=== PATIENT | male | born 1965 ===

== ENCOUNTER 2017-10-03 08:06 | Emergency (ER) | payer MEDICARE, OTHER ==
[2017-10-03 08:34] VITALS: TEMP 97.6; O2SAT 98; BMI 25.7
--- NOTE | 2017-10-03 08:43 | ED PDOC ---
Arrival/HPI - General Historian: Patient - History of Present Illness Time/Duration: < week Symptom Onset: Gradual Symptom Course: Worsening <Hood Juarezferchojeanine - Last Filed: 10/03/17 13:02> - History of Present Illness Quality: Tightness, Stabbing, Burning Severity Level: 8, Severe Activities at Onset: Rest Context: Home <Ceferino Rose - Last Filed: 10/03/17 20:08> - General Chief Complaint: Abnormal Skin Integrity Time Seen by Provider: 10/03/17 10:00 - History of Present Illness Narrative History of Present Illness (Text): 10/03/17 08:36 52 yo M with PMH of cardiomyopathy, mitral valve prolapse, CAD s/p stent, carotid stenosis s/p stent, obstructive hydrocephalus 2/2 benign "brain tumor", HTN, DM, and GERD presents to ER complaining of pelvic skin abscess. Three days ago, patient had a "pimple" in his pelvic region, overlying the pubic bone, which he popped and cleaned. The following day, the "pimple" returned, and he again popped and cleaned it, expressed pus and blood. Over the past two days, he has had increasing pain and swelling, without drainage or bleeding. He denies any other ulceration, skin lesions, penile ulcers, urethral discharge, rash, recent illness, fever, chills, nausea, vomiting, diarrhea, constipation, abdominal pain, groin pain, leg pain, back pain, chest pain, shortness of breath , dysuria, hematuria. Patient is sexually active with his of many years, to whom he is faithful to and does not suspect infidelity. Patient is in [facility] from [place] for the of his [facility], and he plans on staying for several months. (Lonnie Juarez) Past Medical History - Provider Review Nursing Documentation Reviewed: Yes - Travel History Have you recently traveled outside [place] w/in the past 3 mons?: No - Infectious Disease Hx of Infectious Diseases: None - Tetanus Immunization Tetanus Immunization: >10 years Ago - Cardiac Hx Cardiac Disorders: Yes Hx Angina: Yes Hx Cardiac Arrhythmia: Yes Hx Mitral Valve Prolapse: Yes Other/Comment: 4 SC, cardiomyopathy - Pulmonary Hx Respiratory Disorders: Yes Hx Asthma: Yes - Neurological Hx Neurological Disorder: Yes Hx Seizures: Yes Other/Comment: Brain tumor - HEENT Hx HEENT Disorder: No - Renal Hx Renal Disorder: No - Endocrine/Metabolic Hx Endocrine Disorders: Yes Hx Diabetes Mellitus Type 2: Yes Other/Comment: BRAIN TUMOR (NON MALIGNANT) - Hematological/Oncological Hx Blood Disorders: No - Integumentary Hx Dermatological Disorder: No - Musculoskeletal/Rheumatological Hx Musculoskeletal Disorders: No Hx Falls: No - Gastrointestinal Hx Gastrointestinal Disorders: No - Genitourinary/Gynecological Hx Genitourinary Disorders: No - Psychiatric Hx Psychophysiologic Disorder: No Hx Substance Use: No - Surgical History Hx Appendectomy: Yes Hx Orthopedic Surgery: Yes (LEFT SHOULDER REPAIR) - Anesthesia Hx Anesthesia: No - Suicidal Assessment Feels Threatened In Home Enviroment: No <Lonnie Juarez - Last Filed: 10/03/17 13:02> - Provider Review Nursing Documentation Reviewed: Yes - Past History Past History: No Previous <Ceferino Rose - Last Filed: 10/03/17 20:08> - Patient History Narrative Patient History: cardiomyopathy, mitral valve prolapse, CAD s/p stent, carotid stenosis s/p stent , obstructive hydrocephalus 2/2 benign "brain tumor", HTN, DM, and GERD (Lonnie Juarez) Family/Social History - Physician Review Nursing Documentation Reviewed: Yes Family/Social History: Unknown Family HX Smoking Status: Former Smoker Hx Alcohol Use: No Hx Substance Use: No <Lonnie Juarez - Last Filed: 10/03/17 13:02> - Physician Review Nursing Documentation Reviewed: Yes Hx Substance Use Treatment: No <Ceferino Rose - Last Filed: 10/03/17 20:08> Allergies/Home Meds <Lonnie Juarez - Last Filed: 10/03/17 13:02> <Ceferino Rose - Last Filed: 10/03/17 20:08> Allergies/Adverse Reactions: Allergies alprazolam [From Xanax] Allergy (Verified 10/03/17 08:26) RASH amoxicillin Allergy (Verified 10/03/17 08:26) RASH aspirin Allergy (Verified 10/03/17 08:26) RASH propranolol [From Inderal LA] Allergy (Verified 10/03/17 08:26) RASH shellfish derived Allergy (Verified 10/03/17 08:26) RASH Home Medications: Home Meds Medication Instructions Recorded Confirmed Metoprolol Succinate [Toprol XL] 25 mg PO DAILY 01/21/15 10/03/17 Diclofenac Sodium [Voltaren] 75 mg PO DAILY 10/03/17 10/03/17 Lisinopril [Zestril] 2.5 mg PO DAILY 10/03/17 10/03/17 Omeprazole 40 mg PO DAILY 10/03/17 10/03/17 Review of Systems - Review of Systems Constitutional: Normal Eyes: Normal ENT: Normal Respiratory: Normal Cardiovascular: Normal Gastrointestinal: Normal Genitourinary Male: Normal Musculoskeletal: Normal Skin: Skin Lesions (pelvic, as in HPI) Neurological: Normal Endocrine: Normal Hemo/Lymphatic: Normal Psychiatric: Normal <Amine,Mukarram - Last Filed: 10/03/17 13:02> Physical Exam Vital Signs Reviewed: Yes Temperature: Afebrile Blood Pressure: Hypertensive Pulse: Regular Respiratory Rate: Normal Appearance: Positive for: Well-Appearing, Non-Toxic, Comfortable Pain Distress: None Mental Status: Positive for: Alert and Oriented X 3 - Systems Exam Head: Present: Atraumatic, Normocephalic Pupils: Present: PERRL Extroacular Muscles: Present: EOMI Conjunctiva: Present: Normal Mouth: Present: Moist Mucous Membranes Neck: Present: Normal Range of Motion Respiratory/Chest: Present: Clear to Auscultation, Good Air Exchange. No: Respiratory Distress, Accessory Muscle Use Cardiovascular: Present: Regular Rate and Rhythm, Normal S1, S2 Abdomen: Present: Normal Bowel Sounds. No: Tenderness, Distention, Peritoneal Signs Genitourinary Male: Present: Normal External Genitalia, Circumcised Penis, Lesions (5x6cm erythema with 4cm induration with 1cm dry eschar in midline, over pubis; tender; no fluctuance; can express scant pruluent/bloody drainage), Other (No inguinal lymphadenopathy). No: Penile Discharge, Testicle Tenderness , Penile Swelling, Masses, Testicle Swelling Upper Extremity: Present: Normal Inspection. No: Cyanosis, Edema Lower Extremity: Present: Normal Inspection. No: Edema, CALF TENDERNESS Neurological: Present: GCS=15, CN II-XII Intact, Speech Normal Skin: Present: Warm, Dry, Normal Color Lymphatic: No: Inguinal Adenopathy Psychiatric: Present: Alert, Oriented x 3, Normal Insight, Normal Concentration <Amine,Mukarram - Last Filed: 10/03/17 13:02> Vital Signs Temp Pulse Resp BP Pulse Ox 10/03/17 11:37 72 169/70 H 10/03/17 11:30 78 18 169/70 H 98 10/03/17 08:29 97.6 F 91 H 17 167/97 H 98 Medical Decision Making <Lonnie Juarez - Last Filed: 10/03/17 13:02> Re-evaluation Time: 12:00 Reassessment Condition: Improved - Lab Interpretations I have reviewed the lab results: Yes Interpretation: Abnormal lab values (elevated gluc) <Ceferino Rose - Last Filed: 10/03/17 20:08> ED Course and Treatment: 10/03/17 10:21 Impression Skin infection Differential diagnosis includes, but is not limited to Abscess, cellulitis Plan -- Labs -- IV clindamycin x1 -- Analgesia -- Tdap booster -- Wound culture -- Reassess and dispo Progress note 10/03/17 12:32 -- Patient comfortable. Gave one time dose of home medications. BS elevated on presentation, slightly improved after home dose of glipizide, likely reactive 2/ 2 infection -- Erythema minimally improved after IV dose of clindamycin -- Patient remains afebrile, VSS -- Patient will be discharged with 10 days course of PO clindamycin. Instructed patient to return to ER for any new or worsening concerns, especially worsening erythema, fever/chills, increasing pain. Instructed patient to follow up with his PMD (Dr. Dickson) within 3-5 days. Provided 7 day prescription for patient's home medications, Depakote and Glipizide, because he forgot them in [place]. Patient to follow up with PMD for refill. Patient verbalized understanding and agreement with plan. (Lonnie Juarez) In agreement with resident note, which includes further HPI details. Patient was seen and evaluated with resident, came up with plan and treatment together. I performed the hx and physical exam of the patient and discussed their mgt with the RESIDENT. I reviewed the RESIDENT's NOTE and agree with the assessment and plan of care. skin: noted suprapubic mound region skin erythema with central induration/non- fluctuant, slightly tender, no blister/vesicles/lesions/ulcerations/bullae/ NIKOSKY's sign; no bloody discharge, no expressible pus discharge; does not extend to the penis/base of the penis; no extension to b/l groin, no extension posterior to gluteal folds pt is doing well pt is comfortable, NON-toxic appearing with stable vital signs and unremarkable labs pt is made aware of his medical results pt is recommend clean/wound care pt is encouraged not to pop/squeeze anything in the future pt is directed to see his PCP next week pt is encouraged to return to ED if worsening skin discoloration/pain/high fever /worsening wound pt expressed understanding pt will be discharged home (Ceferino Rose) - Lab Interpretations Lab Results: 10/03/17 09:00 10/03/17 09:00 Lab Results 10/03/17 12:03: POC Glucose (mg/dL) 286 H 10/03/17 10:00: PT 11.4, INR 0.99, APTT 26.8 10/03/17 09:00: Sodium 143, Chloride 101, Potassium 4.4, Carbon Dioxide 27, Anion Gap 19, BUN 22 H, Creatinine 1.1, Est GFR ( Amer) > 60, Est GFR ( Non-Af Amer) > 60, Random Glucose 309 H*, Calcium 9.7 10/03/17 09:00: pO2 31, VBG pH 7.31 L, VBG pCO2 56.0, VBG HCO3 28.2 H, VBG Total CO2 29.9 H, VBG O2 Sat (Calc) 68.2 H, VBG Base Excess 0.8, VBG Potassium 4.2, Sodium 137.0, Chloride 102.0, Glucose 318 H, Lactate 2.0, FiO2 21.0, Venous Blood Potassium 4.2 10/03/17 09:00: WBC 9.6 D, RBC 5.30, Hgb 14.8, Hct 42.1, MCV 79.4 L, MCH 27.9, MCHC 35.2, RDW 13.5, Plt Count 140, MPV 9.5, Gran % 71.8 H, Lymph % (Auto) 20.0 L, [place] % (Auto) 6.0, Eos % (Auto) 2.0, Baso % (Auto) 0.2, Gran # 6.86 H, Lymph # (Auto) 1.9, [place] # (Auto) 0.6, Eos # (Auto) 0.2, Baso # (Auto) 0.02 - Medication Orders Current Medication Orders: Discontinued Medications Divalproex Sodium (Depakote Dr (*Bid*)) 500 mg PO STAT STA PRN Reason: Protocol Stop: 10/03/17 10:32 Last Admin: 10/03/17 11:38 Dose: 500 mg Fentanyl (Fentanyl) 50 mcg IVP ONCE ONE Stop: 10/03/17 08:57 Last Admin: 10/03/17 09:17 Dose: 50 mcg MAR Pain Assessment Document 10/03/17 09:17 [facility] (Rec: 10/03/17 09:17 [id number] Pain Reassessment Is this a pain reassessment? No Sleep Is patient sleeping during reassessment? No Presence of Pain Presence of Pain Yes Pain Scale Used Pain Scale Used Numeric Location Upper or Lower Lower Pain Location Body Site Abdomen Description Description Constant Intensity of Pain at present 8 IVP Administration Document 10/03/17 09:17 [facility] (Rec: 10/03/17 09:17 [id number] Charges for Administration # of IVP Administrations 1 Glipizide (Glucotrol) 5 mg PO ACB ANGELIKA Last Admin: 10/03/17 11:38 Dose: 5 mg Clindamycin Phosphate 600 mg/ (Sodium Chloride) 54 mls @ 108 mls/hr IVPB STAT STA PRN Reason: Protocol Stop: 10/03/17 09:55 Last Admin: 10/03/17 09:56 Dose: 108 mls/hr eMAR Start Stop Document 10/03/17 09:56 [facility] (Rec: 10/03/17 09:56 [id number] Intravenous Solution Start Date 10/03/17 Start Time 09:56 End Date 10/03/17 End time 10:26 Total Infusion Time 30 Lisinopril (Zestril) 2.5 mg PO STAT STA Stop: 10/03/17 10:32 Last Admin: 10/03/17 11:38 Dose: 2.5 mg Metoprolol Succinate (Toprol Xl) 25 mg PO STAT STA Stop: 10/03/17 10:32 Last Admin: 10/03/17 11:37 Dose: 25 mg MAR Pulse and Blood Pressure Document 10/03/17 11:37 [facility] (Rec: 10/03/17 11:38 [id number] Pulse Pulse Rate (60-90) 72 Blood Pressure Blood Pressure (100/60-150/90) 169/70 Pantoprazole Sodium (Protonix Ec Tab) 40 mg PO STAT STA Stop: 10/03/17 10:32 Last Admin: 10/03/17 11:37 Dose: 40 mg Tetanus/Reduced Diphtheria/Acell Pertussis (Boostrix Vaccine Inj) 0.5 ml IM .ONCE ONE Stop: 10/03/17 08:57 Last Admin: 10/03/17 09:16 Dose: 0.5 ml Immunization Registry Document 10/03/17 09:16 [facility] (Rec: 10/03/17 09:17 [id number] Immunization Registry Consent Date 10/03/17 <Lonnie Juarez - Last Filed: 10/03/17 13:02> - PA / SCRIPT MANAGER / Resident Statement MD/ has reviewed & agrees with the documentation as recorded. MD/ has examined the patient and agrees with the treatment plan. - Scribe Statement The provider has reviewed the documentation as recorded by the Scribe <Ceferino Rose - Last Filed: 10/03/17 20:08> - Scribe Statement Padma Gunn Provider Scribe Attestation: All medical record entries made by the Scribe were at my direction and personally dictated by me. I have reviewed the chart and agree that the record accurately reflects my personal performance of the history, physical exam, medical decision making, and the department course for this patient. I have also personally directed, reviewed, and agree with the discharge instructions and disposition. (Ceferino Rose) Disposition/Present on Arrival - Present on Arrival Any Indicators Present on Arrival: No History of DVT/PE: No History of Uncontrolled Diabetes: No Urinary Catheter: No History of Decub. Ulcer: No History Surgical Site Infection Following: None - Disposition Have Diagnosis and Disposition been Completed?: Yes Disposition Time: 12:36 Patient Plan: Discharge <Lonnie Juarez - Last Filed: 10/03/17 13:02> <Ceferino Rose - Last Filed: 10/03/17 20:08> - Disposition Diagnosis: Cellulitis, Medication refill Disposition: HOME/ ROUTINE Condition: FAIR Discharge Instructions (ExitCare): Cellulitis (Skin Infection), Adult (DC) Additional Instructions: -- Continue to take the clindamycin four times daily for the next 10 days -- Continue to take all other medications as previously prescribed -- Follow up with Dr. Dickson within the next 3-5 days -- Use motrin or aleve for pain -- Watch for worsening redness (more than 50% of current size is concerning), worsening pain, fever/chills, nausea/vomiting -- Return to the ER for any new or worsening concerns, especially the above -- Do not try to "pop" your infection, or any new lesions. Keep it clean and dry. Prescriptions: Clindamycin [Cleocin] 150 mg PO Q6H #40 cap Divalproex [Depakote ER] 500 mg PO DAILY #7 ter GlipiZIDE [Glucotrol] 5 mg PO DAILY #7 tab Referrals: Nila Llanos, [Primary Care Provider] - Follow up with primary Forms: [employer] (Italian)
[2017-10-03] MEDS ORDERED: TDAP Vaccine 0.5 mL Syr IM ONE (08:56)
[2017-10-03 09:29] LABS: VENOUS BLOOD GAS BASE EXCESS 0.8 mmol/L (0.0-2.0); VENOUS BLOOD GAS PO2 31 mm/Hg (30-55); VENOUS BLOOD PH 7.31 (7.32-7.43)
[2017-10-03 09:49] LABS: BASO # 0.02 K/mm3 (0.0-2.0); BASO % 0.2 % (0.0-3.0); EOS # 0.2 (0.0-0.7); GRAN # 6.86 (1.4-6.5); GRAN % 71.8 % (50.0-68.0); HEMOGLOBIN 14.8 g/dL (14.0-18.0); LYMPH # 1.9 (1.2-3.4); MEAN CELL VOLUME 79.4 fl (80.0-105.0); MEAN CORPUSCULAR HEMOGLOBIN 27.9 pg (25.0-35.0); MEAN CORPUSCULAR HGB CONC 35.2 g/dl (31.0-37.0); MEAN PLATELET VOLUME 9.5 fl (7.0-11.0); MONO # 0.6 (0.1-0.6); RBC 5.3 10^6/uL (3.5-6.1); RED CELL DISTRIBUTION WIDTH 13.5 % (11.5-14.5); WHITE BLOOD COUNT 9.6 10^3/ul (4.5-11.0)
[2017-10-03 10:02] LABS: BLOOD UREA NITROGEN 22 mg/dL (7-21); CALCIUM 9.7 mg/dL (8.4-10.5); GFR AFRICAN-AMERICAN > 60; GFR NON-AFRICAN AMERICAN > 60
[2017-10-03 10:11] LABS: INR 0.99 (0.93-1.08); PARTIAL THROMBOPLASTIN TIME 26.8 Seconds (25.1-36.5); PROTHROMBIN TIME 11.4 SECONDS (9.4-12.5)
[2017-10-03] MEDS ORDERED: Metoprolol Succinate 25 mg XL Tab PO STA (10:31)
[2017-10-03] MEDS ORDERED: Divalproex 250 mg DR (BID formulation) PO STA (10:31)
[2017-10-03] MEDS ORDERED: Pantoprazole 40 mg EC Tab PO STA (10:31)
[2017-10-03 11:39] VITALS: BP 169/70; PULSE 72
[2017-10-03 12:10] VITALS: RESP 18
--- NOTE | 2017-10-05 15:21 | ED PDOC ---
ED Additional Note - Physician Additional Note Physician Additional Note: spoke with patient regarding wound culture. MRSA sensitive to clindamycin. pt currently on clindamycin. i spoke with the patient he is feeling much better. states infection has improved. he has f/u with pmd tomorrow. advised return if symptoms worsen,persist or if new symptoms develop.
== END 2017-10-03 13:08 | disposition home or self-care (01) ==
LOC: ED 08:06
DX: Z76.0 Encounter for issue of repeat prescription (principal); L03.319 Cellulitis of trunk, unspecified; Z23 Encounter for immunization; E11.9 Type 2 diabetes mellitus without complications; I25.10 Atherosclerotic heart disease of native coronary artery without angina pectoris; I10 Essential (primary) hypertension; Z87.891 Personal history of nicotine dependence
CPT/HCPCS: 80048; 82803; 82948; 85025; 85610; 85730; 87070; 87181; 90471; 90715; 96365; 96375; 99283; J3010

== ENCOUNTER 2017-12-26 13:31 | Observation (INO) | payer MEDICARE, OTHER ==
[2017-12-26 13:37] VITALS: BMI 26.4
--- NOTE | 2017-12-26 13:46 | ED PDOC ---
Arrival/HPI - General Chief Complaint: Chest Pain Time Seen by Provider: 12/26/17 13:41 Historian: Patient - History of Present Illness Narrative History of Present Illness (Text): 12/26/17 13:44 52 year old male, whose PMH includes angina, mitral valve prolapse, x4 ME, cardiomyopathy, asthma, seizure, benign brain tumor and diabetes, who presents to the emergency department complaining of mid sternal to left sided chest pain associated with nausea since this morning. Patient reports driving and felt uncomfortable. He also complaints of neck pain that radiates to bilateral arms causing his right hand to go numb x 3 months. Patient notes the chest pain has mildly gone down to a 7 out of 10 compared to this morning but has worsening neck pain. Additionally, he notes being allergic to Aspirin. Patient denies fever, shortness of breath, abdominal pain, vomiting, diarrhea, dizziness, or other complaints. PMD: Dr. Dickson Time/Duration: Prior to Arrival Symptom Onset: Sudden Symptom Course: Improving Activities at Onset: Rest Context: Home Past Medical History - Provider Review Nursing Documentation Reviewed: Yes - Past History Past History: No Previous - Infectious Disease Hx of Infectious Diseases: None - Tetanus Immunization Tetanus Immunization: >10 years Ago - Cardiac Hx Cardiac Disorders: Yes Hx Angina: Yes Hx Cardiac Arrhythmia: Yes Hx Mitral Valve Prolapse: Yes Other/Comment: 4 ME, cardiomyopathy - Pulmonary Hx Respiratory Disorders: Yes Hx Asthma: Yes - Neurological Hx Neurological Disorder: Yes Hx Seizures: Yes Other/Comment: Brain tumor - HEENT Hx HEENT Disorder: No - Renal Hx Renal Disorder: No - Endocrine/Metabolic Hx Endocrine Disorders: Yes Hx Diabetes Mellitus Type 2: Yes Other/Comment: BRAIN TUMOR (NON MALIGNANT) - Hematological/Oncological Hx Blood Disorders: No - Integumentary Hx Dermatological Disorder: No - Musculoskeletal/Rheumatological Hx Musculoskeletal Disorders: No Hx Falls: No - Gastrointestinal Hx Gastrointestinal Disorders: No - Genitourinary/Gynecological Hx Genitourinary Disorders: No - Psychiatric Hx Psychophysiologic Disorder: No Hx Substance Use: No - Surgical History Hx Appendectomy: Yes Hx Orthopedic Surgery: Yes (LEFT SHOULDER REPAIR) - Anesthesia Hx Anesthesia: No - Suicidal Assessment Feels Threatened In Home Enviroment: No Family/Social History - Physician Review Nursing Documentation Reviewed: Yes Family/Social History: CAD/ME (father ME at 51 year old) Smoking Status: Former Smoker Hx Alcohol Use: No Hx Substance Use: No Hx Substance Use Treatment: No Allergies/Home Meds Allergies/Adverse Reactions: Allergies alprazolam [From Xanax] Allergy (Verified 10/03/17 08:26) RASH amoxicillin Allergy (Verified 10/03/17 08:26) RASH aspirin Allergy (Verified 10/03/17 08:26) RASH propranolol [From Inderal LA] Allergy (Verified 10/03/17 08:26) RASH shellfish derived Allergy (Verified 10/03/17 08:26) RASH Home Medications: Home Meds Medication Instructions Recorded Confirmed Metoprolol Succinate XL [Toprol XL] 25 mg PO DAILY 01/21/15 10/03/17 Diclofenac Sodium [Voltaren] 75 mg PO DAILY 10/03/17 10/03/17 Lisinopril [Zestril] 2.5 mg PO DAILY 10/03/17 10/03/17 Omeprazole 40 mg PO DAILY 10/03/17 10/03/17 Review of Systems - Review of Systems Constitutional: absent: Fevers Eyes: absent: Vision Changes Respiratory: absent: SOB Cardiovascular: Chest Pain Gastrointestinal: Nausea. absent: Abdominal Pain, Diarrhea, Vomiting Genitourinary Male: absent: Dysuria Musculoskeletal: Neck Pain (radiates to bilateral arms ) Neurological: absent: Headache, Dizziness Endocrine: absent: Diaphoresis Hemo/Lymphatic: absent: Adenopathy Physical Exam Vital Signs Reviewed: Yes Vital Signs Temp Pulse Resp BP Pulse Ox 12/26/17 13:33 98.6 F 62 16 152/90 H 99 Temperature: Afebrile Blood Pressure: Hypertensive Pulse: Regular Respiratory Rate: Normal Appearance: Positive for: Well-Appearing, Non-Toxic, Comfortable Pain Distress: None Mental Status: Positive for: Alert and Oriented X 3 - Systems Exam Head: Present: Atraumatic, Normocephalic Pupils: Present: PERRL Extroacular Muscles: Present: EOMI Conjunctiva: Present: Normal Mouth: Present: Moist Mucous Membranes Neck: Present: Paraspinal Tenderness (tenderness on left side of neck and low right side of neck ) Respiratory/Chest: Present: Clear to Auscultation, Good Air Exchange. No: Respiratory Distress, Accessory Muscle Use, Wheezes, Decreased Breath Sounds, Rales, Retracting, Rhonchi Cardiovascular: Present: Regular Rate and Rhythm, Normal S1, S2. No: Murmurs Abdomen: Present: Normal Bowel Sounds. No: Tenderness, Distention, Peritoneal Signs, Rebound, Guarding Upper Extremity: Present: Normal ROM, NORMAL PULSES, Tenderness (bilateral anterior shoulder and ulnar side of elbow tenderness ), Neurovascularly Intact, Capillary Refill < 2s. No: Cyanosis, Edema, Erythema, Deformity Neurological: Present: GCS=15, CN II-XII Intact, Speech Normal, Motor Func Grossly Intact, Normal Sensory Function, Normal Cerebellar Funct, Memory Normal Skin: Present: Warm, Dry, Normal Color. No: Rashes Psychiatric: Present: Alert, Oriented x 3, Normal Insight, Normal Concentration Medical Decision Making ED Course and Treatment: 12/26/17 Impression: 52 year old male with tenderness on left side of neck and low right side of neck , tenderness on bilateral anterior shoulder and ulnar side of elbow complaining of chest pain and neck pain that radiates to arms. Differential Diagnosis included but are not limited to: r/o ACS vs. Cervical Radioculopathy Plan: -- EKG -- Chest X-ray -- Labs -- Morphine and Nitroglycerine -- Reassess and disposition Progress Notes: EKG: Ordered, reviewed, and independently interpreted the EKG. Rate : 85 BPM Rhythm : NSR Interpretation : No ST-segment elevations or depressions, no T-wave inversions, normal intervals. 12/26/17 15:01 Chest X-ray: Edward Fobben Impressions: No active disease 12/26/17 15:11 Chest pain resolved after Nitro. Still has neck pain but improving. Case was discussed with Dr. Vasquez who agrees to place on telemetry. Dr. Erazo it web development consultant so a consult was placed for him. - Lab Interpretations Lab Results: 12/26/17 13:47 12/26/17 13:47 Lab Results 12/26/17 13:47: Sodium 138, Potassium 4.7, Chloride 100, Carbon Dioxide 25, Anion Gap 18, BUN 18, Creatinine 0.9, Est GFR ( Amer) > 60, Est GFR (Non- Af Amer) > 60, Random Glucose 279 H, Calcium 9.5, Magnesium 1.8, Total Bilirubin 0.7, AST 49, ALT 78 H, Alkaline Phosphatase 71, Lactate Dehydrogenase 405, Total Creatine Kinase 188, Troponin I < 0.01, Total Protein 7.6, Albumin 4.5, Globulin 3.1, Albumin/Globulin Ratio 1.5 12/26/17 13:47: WBC 5.4 D, RBC 5.09, Hgb 14.3, Hct 39.8 L, MCV 78.2 L, MCH 28.1 , MCHC 35.9, RDW 13.7, Plt Count 135, MPV 9.6, Gran % 62.4, Lymph % (Auto) 30.6 , [place] % (Auto) 4.2, Eos % (Auto) 2.2, Baso % (Auto) 0.6, Gran # 3.38, Lymph # ( Auto) 1.7, [place] # (Auto) 0.2, Eos # (Auto) 0.1, Baso # (Auto) 0.03 I have reviewed the lab results: Yes - RAD Interpretation Radiology Orders: 12/26/17 13:42 CHEST PORTABLE [RAD] Stat Manager Surgical: Radiologist - EKG Interpretation Interpreted by ED Physician: Yes Type: 12 lead EKG - Medication Orders Current Medication Orders: Discontinued Medications Morphine Sulfate (Morphine) 4 mg IVP STAT STA Stop: 12/26/17 13:54 Last Admin: 12/26/17 13:58 Dose: 4 mg MAR Pain Assessment Document 12/26/17 13:58 LM (Rec: 12/26/17 13:58 LMC [id number]) Pain Reassessment Is this a pain reassessment? No Sleep Is patient sleeping during reassessment? No Presence of Pain Presence of Pain Yes Pain Scale Used Pain Scale Used Numeric Location Pain Location Body Site Chest Description Intensity of Pain at present 10 IVP Administration Document 12/26/17 13:58 LMC (Rec: 12/26/17 13:58 LMC [id number]) Charges for Administration # of IVP Administrations 1 Nitroglycerin (Nitrostat Sl Tab) 0.3 mg SL STAT STA Stop: 12/26/17 13:54 Last Admin: 12/26/17 13:58 Dose: 0.3 mg Ondansetron HCl (Zofran Inj) 4 mg IVP STAT STA Stop: 12/26/17 14:09 Last Admin: 12/26/17 14:12 Dose: 4 mg IVP Administration Document 12/26/17 14:12 LMC (Rec: 12/26/17 14:12 LMC [id number]) Charges for Administration # of IVP Administrations 1 - Scribe Statement The provider has reviewed the documentation as recorded by the Scribe Padma Gunn Provider Emoryibe Attestation: All medical record entries made by the Scribe were at my direction and personally dictated by me. I have reviewed the chart and agree that the record accurately reflects my personal performance of the history, physical exam, medical decision making, and the department course for this patient. I have also personally directed, reviewed, and agree with the discharge instructions and disposition. Disposition/Present on Arrival - Present on Arrival Any Indicators Present on Arrival: No History of DVT/PE: No History of Uncontrolled Diabetes: No Urinary Catheter: No History of Decub. Ulcer: No History Surgical Site Infection Following: None - Disposition Have Diagnosis and Disposition been Completed?: Yes Diagnosis: Cervical radiculopathy, Chest pain Disposition: HOSPITALIZED Disposition Time: 14:55 Patient Plan: Admission Condition: FAIR Discharge Instructions (ExitCare): Chest Pain (ED) Forms: [employer] ([place])
[2017-12-26] MEDS ORDERED: Morphine 4 mg/ml ISec IVP STA (13:53)
[2017-12-26 13:57] LABS: BASO # 0.03 K/mm3 (0.0-2.0); BASO % 0.6 % (0.0-3.0); EOS # 0.1 (0.0-0.7); EOS % 2.2 % (1.5-5.0); GRAN # 3.38 (1.4-6.5); GRAN % 62.4 % (50.0-68.0); HEMOGLOBIN 14.3 g/dL (14.0-18.0); LYMPH # 1.7 (1.2-3.4); LYMPH % 30.6 % (22.0-35.0); MEAN CELL VOLUME 78.2 fl (80.0-105.0); MEAN CORPUSCULAR HEMOGLOBIN 28.1 pg (25.0-35.0); MEAN CORPUSCULAR HGB CONC 35.9 g/dl (31.0-37.0); MEAN PLATELET VOLUME 9.6 fl (7.0-11.0); MONO # 0.2 (0.1-0.6); MONO % 4.2 % (1.0-6.0); RBC 5.09 10^6/uL (3.5-6.1); RED CELL DISTRIBUTION WIDTH 13.7 % (11.5-14.5); WHITE BLOOD COUNT 5.4 10^3/ul (4.5-11.0)
[2017-12-26 14:04] LABS: ALB/GLOB RATIO 1.5 (1.1-1.8); ALBUMIN 4.5 g/dL (3.0-4.8); ALT/SGPT 78 U/L (7-56); AST/SGOT 49 U/L (17-59); BLOOD UREA NITROGEN 18 mg/dL (7-21); CALCIUM 9.5 mg/dL (8.4-10.5); GFR AFRICAN-AMERICAN > 60; GFR NON-AFRICAN AMERICAN > 60
[2017-12-26 14:15] LABS: TROPONIN I < 0.01 ng/mL
--- NOTE | 2017-12-26 14:41 | RAD ---
Date of service: 12/26/2017 HISTORY: chest pain COMPARISON: No prior. FINDINGS: LUNGS: No active pulmonary disease. PLEURA: No significant pleural effusion identified, no pneumothorax apparent. CARDIOVASCULAR: Normal. OSSEOUS STRUCTURES: No significant abnormalities. VISUALIZED UPPER ABDOMEN: Normal. OTHER FINDINGS: None. IMPRESSION: No active disease.
--- NOTE | 2017-12-26 17:02 | CP.PCM.HP ---
<JoellenRito - Last Filed: 12/26/17 17:33> History of Present Illness - History of Present Illness History of Present Illness: CC: Chest Pain, Neck Pain HPI: Mr. Echevarria is a 52 year old male with PMH of 5-7 heart attacks s/p 1 stent, HTN, DLD not on statin, DM-2, CVA at age 22 no longer on plavix, paroxysmal atrial fibrillation, and meningioma s/p 5 brain surgeries who presents to the ED with chest pain and neck pain. The chest pain started this morning while he was driving and he describes the pain to be sharp, 10/10, does not radiate, and he states that this chest pain feels different from a heart attack. The chest pain is located mid-sternal and is reproducible. He was given nitroglycerin in the ED and the pain went down to a 5/10. Patient also complains of neck pain that started 2 months ago. He describes the pain to be sharp and radiates to his entire left arm. The pain is made significantly worse when he sidebends his head to the left and on head extension. He also admits to having tingling and numbness to both his hands especially on his left thumb. Patient denies shortness of breath, fever, chills, abdominal pain, nausea, vomiting, diarrhea, and urinary symptoms 12 point ROS negative except as indicated in HPI Past medical history: 5-7 CT's, CVA, HTN, DM-2, HLD, paroxysmal atrial fibrillation, and meningioma. Surgical History: 5 brain surgeries, 1 x cardiac stent, carotid artery stent, rotator cuff muscle and tendon repair. Allergies: Aspirin-rash, amoxicillin, xanax, propanolol, shellfish. Social History: Tobacco- 31 pack years, last smoked 5 years ago. Denies alcohol , used to be a social drinker. Denies illicit drug use. Family History: Father- high cholesterol PMD: Dr. Dickson [facility]acy: [facility]: Metoprolol, omeprazole, glipizide, lisinopril, diclofenac, divalproex, gabapentin. Present on Admission - Present on Admission Any Indicators Present on Admission: Yes History of DVT/PE: No History of Uncontrolled Diabetes: Yes Urinary Catheter: No Decubitus Ulcer Present: No Review of Systems - Review of Systems Review of Systems: 12 point ROS negative except as indicated in HPI Past Patient History - Infectious Disease Hx of Infectious Diseases: None - Tetanus Immunizations Tetanus Immunization: >10 years Ago - Past Medical History & Family History Past Medical History?: Yes - Past Social History Smoking Status: Former Smoker - CARDIAC Hx Cardiac Disorders: Yes Hx Angina: Yes Hx Cardia Arrhythmia: Yes Hx Mitral Valve Prolapse: Yes Other/Comment: 4 CT, cardiomyopathy - PULMONARY Hx Respiratory Disorders: Yes Hx Asthma: Yes - NEUROLOGICAL Hx Neurological Disorder: Yes Hx Seizures: Yes Other/Comment: Brain tumor - HEENT Hx HEENT Problems: No - RENAL Hx Chronic Kidney Disease: No - ENDOCRINE/METABOLIC Hx Endocrine Disorders: Yes Hx Diabetes Mellitus Type 2: Yes Other/Comment: BRAIN TUMOR (NON MALIGNANT) - HEMATOLOGICAL/ONCOLOGICAL Hx Blood Disorders: No - INTEGUMENTARY Hx Dermatological Problems: No - MUSCULOSKELETAL/RHEUMATOLOGICAL Hx Musculoskeletal Disorders: No Hx Falls: No - GASTROINTESTINAL Hx Gastrointestinal Disorders: No - GENITOURINARY/GYNECOLOGICAL Hx Genitourinary Disorders: No - PSYCHIATRIC Hx Psychophysiologic Disorder: No Hx Substance Use: No - SURGICAL HISTORY Hx Appendectomy: Yes Hx Orthopedic Surgery: Yes (LEFT SHOULDER REPAIR) - ANESTHESIA Hx Anesthesia: No Meds Allergies/Adverse Reactions: Allergies Allergy/AdvReac Type Severity Reaction Status Date / Time alprazolam [From Xanax] Allergy RASH Verified 10/03/17 08:26 amoxicillin Allergy RASH Verified 10/03/17 08:26 aspirin Allergy RASH Verified 10/03/17 08:26 propranolol [From Inderal LA] Allergy RASH Verified 10/03/17 08:26 shellfish derived Allergy RASH Verified 10/03/17 08:26 Physical Exam - Constitutional Appears: No Acute Distress - Head Exam Head Exam: ATRAUMATIC, NORMAL INSPECTION, NORMOCEPHALIC - Eye Exam Eye Exam: Normal appearance, PERRL. absent: Nystagmus, Scleral icterus Pupil Exam: NORMAL ACCOMODATION - ENT Exam ENT Exam: Mucous Membranes Moist - Neck Exam Neck exam: Positive for: Tenderness. Negative for: Full Rom Additional comments: Cervical spine tender on palpation on the back and left side. - Respiratory Exam Respiratory Exam: Clear to Auscultation Bilateral. absent: Rales, Rhonchi, Wheezes - Cardiovascular Exam Cardiovascular Exam: Irregular Rhythm, +S1, +S2. absent: Gallop, Rubs, Systolic Murmur - GI/Abdominal Exam GI & Abdominal Exam: Normal Bowel Sounds, Soft. absent: Tenderness - Extremities Exam Extremities exam: Negative for: full ROM, pedal edema, tenderness Additional comments: Sensations intact on bilateral arms except for loss of sensation of left thumb. - Back Exam Back exam: paraspinal tenderness, vertebral tenderness Additional comments: Cervical spine tender on palpation and hypertonic cervical paraspinal muscles. - Neurological Exam Neurological exam: Alert, CN II-XII Intact, Oriented x3, Reflexes Normal Additional comments: Muscle strength left extremity 3/5 Muscle strength right extremity 5/5. - Psychiatric Exam Psychiatric exam: Normal Affect, Normal Mood - Skin Skin Exam: Dry, Normal Color, Warm Results - Vital Signs Recent Vital Signs: Last Vital Signs Temp 98.6 F 12/26/17 13:33 Pulse 62 12/26/17 13:33 Resp 16 12/26/17 13:33 BP 152/90 H 12/26/17 13:33 Pulse Ox 99 12/26/17 13:33 - Labs Result Diagrams: 12/26/17 13:47 12/26/17 13:47 Assessment & Plan - Assessment and Plan (Free Text) Assessment: Mr. Echevarria is a 52 year old male with PMH of 5-7 CT's, HTN, DLD not on statin, DM- 2, CVA at age 22 no longer on plavix, paroxysmal atrial fibrillation, and meningioma s/p 5 brain surgeries who presents to the ED with chest pain and neck pain Plan: Chest pain - Most likely muskuloskeletal but need to r/o ACS due to patient's cardiac history of CT's and s/p stent - Not on antiplatelets- allergic to ASA - Troponin 0.01 x 1, will continue to trend Q6H - Cardiology consulted - EKG: NSR @ 85, no ST elevations or depressions. - CXR: No acute findings - Echo pending - C/w Metoprolol - Heart healthy diet Cervical radiculopathy - CT scan of neck pending - PT consulted - Start Flexeril History of diabetes - HbA1c ordered - ISS - Fingerstick blood glucose- ACHS History of hyperlipidemia - Not on lipid-lowering medications - Lipid panel ordered History of hypertension - C/w lisinopril - Continue to monitor History of brain tumor - C/w Divalproex GI/DVT prophylaxis - Lovenox - Protonix Patient seen, examined, and case discussed with Dr. Vasquez <Jayy Vasquez - Last Filed: 12/27/17 19:02> Results - Vital Signs Recent Vital Signs: Last Vital Signs Temp 98 F 12/27/17 11:47 Pulse 90 12/27/17 18:00 Resp 20 12/27/17 11:47 BP 138/82 12/27/17 11:47 Pulse Ox 99 12/27/17 09:00 - Labs Result Diagrams: 12/27/17 06:20 12/27/17 06:20 Labs: Laboratory Results - last 24 hr 12/26/17 12/26/17 12/27/17 19:45 20:53 01:15 WBC RBC Hgb Hct MCV MCH MCHC RDW Plt Count MPV Gran % Lymph % (Auto) [place] % (Auto) Eos % (Auto) Baso % (Auto) Gran # Lymph # (Auto) [place] # (Auto) Eos # (Auto) Baso # (Auto) Sodium Potassium Chloride Carbon Dioxide Anion Gap BUN Creatinine Est GFR ( Amer) Est GFR (Non-Af Amer) POC Glucose (mg/dL) 248 H Random Glucose Calcium Total Bilirubin AST ALT Alkaline Phosphatase Troponin I < 0.01 < 0.01 Total Protein Albumin Globulin Albumin/Globulin Ratio Triglycerides Cholesterol LDL Cholesterol Direct HDL Cholesterol 12/27/17 12/27/17 12/27/17 06:20 06:20 07:47 WBC 5.3 RBC 4.83 Hgb 13.3 L Hct 38.2 L MCV 79.1 L MCH 27.5 MCHC 34.8 RDW 13.6 Plt Count 128 MPV 9.8 Gran % 46.0 L Lymph % (Auto) 44.7 H [place] % (Auto) 5.1 Eos % (Auto) 3.8 Baso % (Auto) 0.4 Gran # 2.45 Lymph # (Auto) 2.4 [place] # (Auto) 0.3 Eos # (Auto) 0.2 Baso # (Auto) 0.02 Sodium 138 Potassium 4.2 Chloride 100 Carbon Dioxide 28 Anion Gap 14 BUN 25 H Creatinine 1.1 Est GFR ( Amer) > 60 Est GFR (Non-Af Amer) > 60 POC Glucose (mg/dL) 192 H Random Glucose 188 H Calcium 9.1 Total Bilirubin 0.5 AST 43 ALT 72 H Alkaline Phosphatase 65 Troponin I Total Protein 6.9 Albumin 4.0 Globulin 2.9 Albumin/Globulin Ratio 1.4 Triglycerides 869 H Cholesterol 210 H LDL Cholesterol Direct 50 HDL Cholesterol 27 L 12/27/17 12/27/17 11:30 17:16 WBC RBC Hgb Hct MCV MCH MCHC RDW Plt Count MPV Gran % Lymph % (Auto) [place] % (Auto) Eos % (Auto) Baso % (Auto) Gran # Lymph # (Auto) [place] # (Auto) Eos # (Auto) Baso # (Auto) Sodium Potassium Chloride Carbon Dioxide Anion Gap BUN Creatinine Est GFR ( Amer) Est GFR (Non-Af Amer) POC Glucose (mg/dL) 185 H 189 H Random Glucose Calcium Total Bilirubin AST ALT Alkaline Phosphatase Troponin I Total Protein Albumin Globulin Albumin/Globulin Ratio Triglycerides Cholesterol LDL Cholesterol Direct HDL Cholesterol Attending/Attestation - Attestation I have personally seen and examined this patient.: Yes I have fully participated in the care of the patient.: Yes I have reviewed all pertinent clinical information: Yes Notes (Text): 12/27/17 18:57 Attending note; Patient seen and examined with the resident in ER. Patient is alert and awake. Patient is a 52 year old male with the PMH of ? heart attacks s/p 1 stent, HTN , hypercholesterolemia, DM-2, CVA at age 22, and meningioma s/p 5 brain surgeries who presents to the ED with chest pain and neck pain. Patient has multiple medical issues dating from age 22. Patient has been seeing multiple doctors in [place] and in [place]. History per patient. No other documentation available at this time. Patient was recently seen by PMD . Patient has a chronic neck pain for the past few months. Patient is currently pain-free. Admit to telemetry. EKG no acute changes. Cardiac enzymes negative. Cardiology evaluation requested. Echocardiogram ordered. Denies any recent stress test. CT of cervical spine ordered. Physical therapy evaluation requested. Started on Flexeril. Monitor closely in telemetry. Upon discharge patient will follow-up with PMD Dr. Dickson.
[2017-12-26] MEDS: Insulin Reg-LOW-Coverage SC SCH ×2 (17:18→21:17)
--- NOTE | 2017-12-26 17:27 | CARD ---
APPROVED REPORT Date of service: 12/26/2017 EKG Measurement Heart [id number] <Conclusion> Normal sinus rhythm Normal ECG
[2017-12-26] MEDS ORDERED: Pneumococcal 23-Valent Vaccine IM ONE (21:02)
[2017-12-27] MEDS ORDERED: Pantoprazole 40 mg EC Tab PO SCH (06:00)
[2017-12-27 07:03] LABS: BASO # 0.02 K/mm3 (0.0-2.0); BASO % 0.4 % (0.0-3.0); EOS # 0.2 (0.0-0.7); EOS % 3.8 % (1.5-5.0); GRAN # 2.45 (1.4-6.5); HEMOGLOBIN 13.3 g/dL (14.0-18.0); LYMPH # 2.4 (1.2-3.4); LYMPH % 44.7 % (22.0-35.0); MEAN CELL VOLUME 79.1 fl (80.0-105.0); MEAN CORPUSCULAR HEMOGLOBIN 27.5 pg (25.0-35.0); MEAN CORPUSCULAR HGB CONC 34.8 g/dl (31.0-37.0); MEAN PLATELET VOLUME 9.8 fl (7.0-11.0); MONO # 0.3 (0.1-0.6); MONO % 5.1 % (1.0-6.0); RBC 4.83 10^6/uL (3.5-6.1); RED CELL DISTRIBUTION WIDTH 13.6 % (11.5-14.5); WHITE BLOOD COUNT 5.3 10^3/ul (4.5-11.0)
[2017-12-27 07:25] LABS: LDL CHOLESTEROL 50 mg/dL (0-129)
[2017-12-27 07:27] LABS: ALB/GLOB RATIO 1.4 (1.1-1.8); ALT/SGPT 72 U/L (7-56); AST/SGOT 43 U/L (17-59); BLOOD UREA NITROGEN 25 mg/dL (7-21); CALCIUM 9.1 mg/dL (8.4-10.5); GFR AFRICAN-AMERICAN > 60; GFR NON-AFRICAN AMERICAN > 60; HDL CHOLESTEROL 27 mg/dL (29-60)
[2017-12-27] MEDS: Insulin Reg-LOW-Coverage SC SCH ×3 (07:58→17:48)
--- NOTE | 2017-12-27 09:17 | CON ---
DATE: 12/27/2017 REQUESTING PHYSICIAN: Dr. Vasquez. REASON FOR CONSULTATION: Chest pain. HISTORY: This is a 52-year-old man with somewhat complex past medical history who has had variable followups in the past. He presented with retrosternal chest discomfort, which he describes as a sharp disk pain and pressure-like sensation as well. He became concerned and presented to the Emergency Room. He states his pain was 5/10 yesterday; however, feels somewhat better. However, his pain does persist. His cardiac enzymes have been negative. Electrocardiogram shows no acute changes. He spends most of his time in [place], but returned from there several months ago. He does not follow up regularly with the table maker. Reportedly, he has had prior myocardial infarction and coronary artery stent placed in the past. He also underwent a carotid stent based on history. He reportedly has had paroxysmal atrial fibrillation as well as a history of hypertension and hyperlipidemia. His past history is known for the problems mentioned above. He has undergone prior brain surgery in the past and apparently, had a meningioma as well as a history of hydrocephalus and placement of a IMPORT DISPATCHER shunt. He underwent prior left shoulder surgery as well as appendectomy. He does have a history of hypertension and diabetes as well. His current medications reportedly include Depakote 500 mg daily, Flexeril, insulin coverage, Lovenox, Protonix 40 mg daily, Toprol-XL 25 mg daily and Zestril 2.5 mg daily. ALLERGIES: HE REPORTEDLY HAD REACTIONS TO PENICILLIN, PROPRANOLOL, ASPIRIN AND ALPRAZOLAM IN THE PAST. SOCIAL HISTORY: He is a former smoker. He is reportedly a retired high school counselor. He has a history of alcohol abuse in the past. FAMILY HISTORY: Father had multiple myocardial infarctions and ultimately underwent heart transplant. He of prostate cancer. Mother had myocardial infarctions in her 50s and 60s. REVIEW OF SYSTEMS: The 10-point review of systems is notable mainly for problems as listed above. PHYSICAL EXAMINATION: GENERAL: He is an overweight middle-aged man. VITAL SIGNS: Blood pressure is 140/80 with a pulse of 70 in sinus, respirations are 16. He is afebrile. HEENT: Normocephalic, atraumatic. NECK: Supple. No JVD is noted. CHEST: A few scattered rhonchi heard. HEART: PMI, normal position. No pathological gallops noted. ABDOMEN: Soft and nontender. Normoactive bowel sounds. EXTREMITIES: No clubbing, cyanosis, edema. SKIN: Warm and dry. PSYCHIATRIC: Normal mood and affect. NEUROLOGIC: Alert and oriented x3. No gross motor or sensory deficits appreciable. DIAGNOSTIC DATA: Three sets of cardiac enzymes are negative. White count is 5.4, hemoglobin and hematocrit of 14.3 and 39.8 with platelet count 135,000, potassium 4.7, BUN and creatinine 18 and 0.9, glucose 279. Chest x-ray reveals normal cardiac silhouette with clear lung lucas. Electrocardiogram reveals sinus rhythm with no acute ST-T changes. IMPRESSION: 1. Chest pain, unclear if this is cardiac in nature or due to neuropathic or musculoskeletal cause. 2. Apparent coronary artery disease, status post prior percutaneous coronary intervention, details unclear. 3. History of hypertension, diabetes and remote tobacco abuse. 4. Rest of problems as noted. RECOMMENDATIONS: The patient should be ambulated. He does need a followup stress test. If he has no worsening of his pain, discharge home with outpatient stress test next week would be reasonable. If he has recurrent pain, he may be kept in the hospital and have stress test performed on Friday. Attempts will be made to obtain more information regarding his prior workup. Thank you for this consultation. Matthew Myers MD [email or web address]
[2017-12-27] MEDS ORDERED: Divalproex 500 mg ER (ONCE DAILY formulation) PO SCH (10:00)
[2017-12-27] MEDS ORDERED: DICLOFENAC SODIUM 75 MG PO SCH (10:00)
[2017-12-27] MEDS ORDERED: Enoxaparin 40 mg Syringe SC SCH (10:00)
[2017-12-27] MEDS ORDERED: Metoprolol Succinate 25 mg XL Tab PO SCH (10:00)
[2017-12-27 10:53] VITALS: O2SAT 99
[2017-12-27 11:49] VITALS: BP 138/82; RESP 20; TEMP 98
[2017-12-27 18:10] VITALS: PULSE 90
--- NOTE | 2017-12-27 19:35 | CP.PCM.DIS ---
<Rito Cuenca - Last Filed: 12/27/17 21:47> Provider - Provider Date of Admission: 12/26/17 14:55 Attending physician: Jayy Vasquez MD Time Spent in preparation of Discharge (in minutes): 45 Diagnosis - Discharge Diagnosis (1) Chest pain Status: Chronic Priority: Medium (2) Cervical radiculopathy Status: Chronic Priority: Medium (3) Diabetes mellitus Status: Chronic Priority: Medium (4) Hyperlipidemia Status: Chronic Priority: Medium (5) Hypertension Status: Chronic Priority: Medium (6) Meningioma Status: Chronic Priority: Medium Hospital Course - Lab Results Lab Results: Most Recent Lab Values WBC 5.3 10^3/ul (4.5-11.0) 12/27/17 06:20 RBC 4.83 10^6/uL (3.5-6.1) 12/27/17 06:20 Hgb 13.3 g/dL (14.0-18.0) L 12/27/17 06:20 Hct 38.2 % (42.0-52.0) L 12/27/17 06:20 MCV 79.1 fl (80.0-105.0) L 12/27/17 06:20 MCH 27.5 pg (25.0-35.0) 12/27/17 06:20 MCHC 34.8 g/dl (31.0-37.0) 12/27/17 06:20 RDW 13.6 % (11.5-14.5) 12/27/17 06:20 Plt Count 128 10^3/uL (120.0-450.0) 12/27/17 06:20 MPV 9.8 fl (7.0-11.0) 12/27/17 06:20 Gran % 46.0 % (50.0-68.0) L 12/27/17 06:20 Lymph % (Auto) 44.7 % (22.0-35.0) H 12/27/17 06:20 [place] % (Auto) 5.1 % (1.0-6.0) 12/27/17 06:20 Eos % (Auto) 3.8 % (1.5-5.0) 12/27/17 06:20 Baso % (Auto) 0.4 % (0.0-3.0) 12/27/17 06:20 Gran # 2.45 (1.4-6.5) 12/27/17 06:20 Lymph # (Auto) 2.4 (1.2-3.4) 12/27/17 06:20 [place] # (Auto) 0.3 (0.1-0.6) 12/27/17 06:20 Eos # (Auto) 0.2 (0.0-0.7) 12/27/17 06:20 Baso # (Auto) 0.02 K/mm3 (0.0-2.0) 12/27/17 06:20 Sodium 138 mmol/L (132-148) 12/27/17 06:20 Potassium 4.2 mmol/L (3.6-5.0) 12/27/17 06:20 Chloride 100 mmol/L (98-107) 12/27/17 06:20 Carbon Dioxide 28 mmol/L (21-33) 12/27/17 06:20 Anion Gap 14 (10-20) 12/27/17 06:20 BUN 25 mg/dL (7-21) H 12/27/17 06:20 Creatinine 1.1 mg/dl (0.8-1.5) 12/27/17 06:20 Est GFR ( Amer) > 60 12/27/17 06:20 Est GFR (Non-Af Amer) > 60 12/27/17 06:20 POC Glucose (mg/dL) 189 mg/dL (65-110) H 12/27/17 17:16 Random Glucose 188 mg/dL (70-110) H 12/27/17 06:20 Calcium 9.1 mg/dL (8.4-10.5) 12/27/17 06:20 Magnesium 1.8 mg/dL (1.7-2.2) 12/26/17 13:47 Total Bilirubin 0.5 mg/dL (0.2-1.3) 12/27/17 06:20 AST 43 U/L (17-59) 12/27/17 06:20 ALT 72 U/L (7-56) H 12/27/17 06:20 Alkaline Phosphatase 65 U/L (38-126) 12/27/17 06:20 Lactate Dehydrogenase 405 U/L (333-699) 12/26/17 13:47 Total Creatine Kinase 188 U/L (35-230) 12/26/17 13:47 Troponin I < 0.01 ng/mL 12/27/17 01:15 Total Protein 6.9 g/dL (5.8-8.3) 12/27/17 06:20 Albumin 4.0 g/dL (3.0-4.8) 12/27/17 06:20 Globulin 2.9 gm/dL 12/27/17 06:20 Albumin/Globulin Ratio 1.4 (1.1-1.8) 12/27/17 06:20 Triglycerides 869 mg/dL (35-160) H 12/27/17 06:20 Cholesterol 210 mg/dL (130-200) H 12/27/17 06:20 LDL Cholesterol Direct 50 mg/dL (0-129) 12/27/17 06:20 HDL Cholesterol 27 mg/dL (29-60) L 12/27/17 06:20 TSH 3rd Generation 1.39 mIU/mL (0.46-4.68) 12/26/17 13:47 - Hospital Course Hospital Course: Mr. Echevarria is a 52 year old male with PMH of multiple myocardial infarctions s/p 1 stent, HTN, DLD, DM-2, CVA, paroxysmal atrial fibrillation, and meningioma s/ p 5 brain surgeries who presents to the ED with chest pain and neck pain. Patient was treated with metoprolol, lisinopril, insulin, depakote, flexeril, lovenox, and protonix. During the course of his hospital stay, he underwent EKG , Cervical spine CT, chest xray, and echocardiogram. EKG showed sinus rhythm at a rate of [address] elevations or depressions. Chest xray showed no active disease. Echocardiogram and cervical spine CT results are still pending. The patient agreed to be discharge without the results and have the hospital call him with the results once it is read and available. Cardiology (Dr. Myers) was consulted in the management and treatment of the patient. Cardiology evaluated the patient and recommended that patient do a stress test as an outpatient. Patient was instructed to resume activity as tolerated and to continue a heart healthy diet at home. Patient instructed to take new medications flexeril, tricor and continue with home medications: voltaren, depakote, glucotrol, zestril, and omeprazole. He was educated on the correct way to take medications and was told to follow up with his primary care doctor within 1 week of discharge. Patient further informed to return to the ED for worsening of symptoms.Patient is now medically optimized for discharge. Discharge Exam - Head Exam Head Exam: ATRAUMATIC, NORMAL INSPECTION, NORMOCEPHALIC - Eye Exam Eye Exam: Normal appearance - ENT Exam ENT Exam: Mucous Membranes Moist - Respiratory Exam Respiratory Exam: Clear to PA & Lateral. absent: Rales, Rhonchi, Wheezes - Cardiovascular Exam Cardiovascular Exam: REGULAR RHYTHM, +S1, +S2. absent: Gallop, Rubs, Systolic Murmur - GI/Abdominal Exam GI & Abdominal Exam: Normal Bowel Sounds, Soft. absent: Tenderness - Neurological Exam Neurological exam: Alert, Oriented x3 - Psychiatric Exam Psychiatric exam: Normal Affect, Normal Mood - Skin Skin Exam: Dry, Normal Color, Warm Discharge Plan - Discharge Medications Prescriptions: Cyclobenzaprine [Flexeril] 5 mg PO TID PRN #6 tab PRN Reason: muscle spasms Fenofibrate [Tricor] 145 mg PO DAILY #14 tab - Follow Up Plan Condition: FAIR Disposition: HOME/ ROUTINE Instructions: Chest Pain (ED), Chest Pain (DC), Chest Pain (GEN), Hypertension (DC), Hypertension (GEN) Additional Instructions: 1. Please start new medications: Flexeril 5mg by mouth 3 times daily as needed Tricor 145mg by mouth once daily 2. Please continue home medications 3. Please follow up with Primary care doctor within 1 week 4. Resume activity as tolerated 5. Continue heart healthy diet at home 6. Return to the ED if symptoms returns <Jayy Vasquez - Last Filed: 12/28/17 07:24> Provider - Provider Date of Admission: 12/26/17 14:55 Attending physician: Jayy Vasquez MD Hospital Course - Lab Results Lab Results: Most Recent Lab Values WBC 5.3 10^3/ul (4.5-11.0) 12/27/17 06:20 RBC 4.83 10^6/uL (3.5-6.1) 12/27/17 06:20 Hgb 13.3 g/dL (14.0-18.0) L 12/27/17 06:20 Hct 38.2 % (42.0-52.0) L 12/27/17 06:20 MCV 79.1 fl (80.0-105.0) L 12/27/17 06:20 MCH 27.5 pg (25.0-35.0) 12/27/17 06:20 MCHC 34.8 g/dl (31.0-37.0) 12/27/17 06:20 RDW 13.6 % (11.5-14.5) 12/27/17 06:20 Plt Count 128 10^3/uL (120.0-450.0) 12/27/17 06:20 MPV 9.8 fl (7.0-11.0) 12/27/17 06:20 Gran % 46.0 % (50.0-68.0) L 12/27/17 06:20 Lymph % (Auto) 44.7 % (22.0-35.0) H 12/27/17 06:20 [place] % (Auto) 5.1 % (1.0-6.0) 12/27/17 06:20 Eos % (Auto) 3.8 % (1.5-5.0) 12/27/17 06:20 Baso % (Auto) 0.4 % (0.0-3.0) 12/27/17 06:20 Gran # 2.45 (1.4-6.5) 12/27/17 06:20 Lymph # (Auto) 2.4 (1.2-3.4) 12/27/17 06:20 [place] # (Auto) 0.3 (0.1-0.6) 12/27/17 06:20 Eos # (Auto) 0.2 (0.0-0.7) 12/27/17 06:20 Baso # (Auto) 0.02 K/mm3 (0.0-2.0) 12/27/17 06:20 Sodium 138 mmol/L (132-148) 12/27/17 06:20 Potassium 4.2 mmol/L (3.6-5.0) 12/27/17 06:20 Chloride 100 mmol/L (98-107) 12/27/17 06:20 Carbon Dioxide 28 mmol/L (21-33) 12/27/17 06:20 Anion Gap 14 (10-20) 12/27/17 06:20 BUN 25 mg/dL (7-21) H 12/27/17 06:20 Creatinine 1.1 mg/dl (0.8-1.5) 12/27/17 06:20 Est GFR ( Amer) > 60 12/27/17 06:20 Est GFR (Non-Af Amer) > 60 12/27/17 06:20 POC Glucose (mg/dL) 189 mg/dL (65-110) H 12/27/17 17:16 Random Glucose 188 mg/dL (70-110) H 12/27/17 06:20 Calcium 9.1 mg/dL (8.4-10.5) 12/27/17 06:20 Magnesium 1.8 mg/dL (1.7-2.2) 12/26/17 13:47 Total Bilirubin 0.5 mg/dL (0.2-1.3) 12/27/17 06:20 AST 43 U/L (17-59) 12/27/17 06:20 ALT 72 U/L (7-56) H 12/27/17 06:20 Alkaline Phosphatase 65 U/L (38-126) 12/27/17 06:20 Lactate Dehydrogenase 405 U/L (333-699) 12/26/17 13:47 Total Creatine Kinase 188 U/L (35-230) 12/26/17 13:47 Troponin I < 0.01 ng/mL 12/27/17 01:15 Total Protein 6.9 g/dL (5.8-8.3) 12/27/17 06:20 Albumin 4.0 g/dL (3.0-4.8) 12/27/17 06:20 Globulin 2.9 gm/dL 12/27/17 06:20 Albumin/Globulin Ratio 1.4 (1.1-1.8) 12/27/17 06:20 Triglycerides 869 mg/dL (35-160) H 12/27/17 06:20 Cholesterol 210 mg/dL (130-200) H 12/27/17 06:20 LDL Cholesterol Direct 50 mg/dL (0-129) 12/27/17 06:20 HDL Cholesterol 27 mg/dL (29-60) L 12/27/17 06:20 TSH 3rd Generation 1.39 mIU/mL (0.46-4.68) 12/26/17 13:47 Attending/Attestation - Attestation I have personally seen and examined this patient.: Yes I have fully participated in the care of the patient.: Yes I have reviewed all pertinent clinical information, including history, physical exam and plan: Yes Notes (Text): 12/28/17 07:22 Attending note; Patient seen and examined with the resident. neck and muscle spasm is improved. not in distress. Patient is alert and awake. Patient is a 52 year old male with the PMH of [place] s/p 1 stent, HTN, hypercholesterolemia, DM-2, CVA at age 22, and meningioma s/p 5 brain surgeries who presents to the ED with chest pain and neck pain. cardiac enzymes negative. seen by cardiology Dr. alaniz. recommended outpatient stress test. Patient was recently seen by PMD . he would like to follow up with him for stress test. Patient has a chronic neck pain for the past few months. CT of cervical spine done. results pending. Physical therapy evaluation appreciated. Started on Flexeril. discharge home. Follow up ECHO and CT neck results from medical records. Upon discharge patient will follow-up with PMD Dr. Dickson.
--- NOTE | 2017-12-27 20:57 | CARD ---
APPROVED REPORT Date of service: 12/27/2017 EKG Measurement Heart [id number] <Conclusion> Normal sinus rhythm Normal ECG
--- NOTE | 2017-12-27 21:03 | CARD ---
APPROVED REPORT Date of service: 12/26/2017 EKG Measurement Heart [id number] <Conclusion> Normal sinus rhythm Normal ECG
--- NOTE | 2017-12-28 09:31 | CT ---
Date of service: 12/27/2017 PROCEDURE: CT Cervical Spine without contrast HISTORY: Cervical Radiculopathy COMPARISON: None available. TECHNIQUE: Axial computed tomography images were obtained of the cervical spine without the use of intravenous contrast. Coronal and sagittal reformatted images were created and reviewed. Radiation dose: Total exam DLP = 498 mGy-cm. This CT exam was performed using one or more of the following dose reduction techniques: Automated exposure control, adjustment of the mA and/or kV according to patient size, and/or use of iterative reconstruction technique. FINDINGS: VERTEBRAE: No fracture. Normal alignment. No destructive bony lesion. DISCS/SPINAL CANAL/NEURAL FORAMINA: No significant central canal or neural foraminal stenosis. There is a disc bulge at C5-6 with bilateral foraminal narrowing. There is a mild disc bulge at C4-5 and C3-4 PARASPINAL SOFT TISSUES: Unremarkable. OTHER FINDINGS: The report concurs with the preliminary [facility] report IMPRESSION: There is a disc bulge at C5-6 with bilateral foraminal narrowing. There is a mild disc bulge at C4-5 and C3-4
== END 2017-12-27 21:16 | disposition home or self-care (01) ==
LOC: ED 13:31 → ERH 14:55 → 2RNO 16:45
PROVIDERS: ADMIT Internal Medicine; ATTEND Internal Medicine
DX: R07.89 Other chest pain (principal); D32.9 Benign neoplasm of meninges, unspecified; E11.9 Type 2 diabetes mellitus without complications; E78.5 Hyperlipidemia, unspecified; I10 Essential (primary) hypertension; I25.10 Atherosclerotic heart disease of native coronary artery without angina pectoris; I25.2 Old myocardial infarction; I34.1 Nonrheumatic mitral (valve) prolapse; I42.9 Cardiomyopathy, unspecified; I48.0 Paroxysmal atrial fibrillation; J45.909 Unspecified asthma, uncomplicated; M54.12 Radiculopathy, cervical region; Z86.73 Personal history of transient ischemic attack (TIA), and cerebral infarction without residual deficits; Z87.891 Personal history of nicotine dependence; Z95.5 Presence of coronary angioplasty implant and graft
CPT/HCPCS: 36415; 71045; 72125; 80053; 80061; 82550; 82948; 83036; 83615; 83735; 84443; 84484; 85025; 93005; 93306; 96374; 97162; 97530; 99285; G0378; G8978; G8980; J1650; J1885; J2270; J2405

== ENCOUNTER 2018-02-06 22:37 | Emergency (ER) | payer MEDICARE ==
[2018-02-06 22:38] VITALS: BMI 26.4
[2018-02-06 23:35] VITALS: RESP 18; O2SAT 97
--- NOTE | 2018-02-07 00:11 | ED PDOC ---
Arrival/HPI - General Chief Complaint: Upper Extremity Problem/Injury Time Seen by Provider: 02/06/18 23:54 - History of Present Illness Narrative History of Present Illness (Text): 02/07/18 00:08 53 yr old male w/ hx of brain CA, cervical radiculopathy, appendectomy p/w L elbow pain, started yesterday. Throbbing left elbow pain, associated with pain on palpation and swelling to L end of elbow. First time occurence. No overlying redness or warmth or spreading of redness. No recent trauma or falls. No fever, chills or night sweat. He otherwise notes good ability to move the elbow with much pain. No streaking from the site. No other complaints. 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; lacement lat one 08/2006, benign brain tumor - HEENT Hx HEENT Disorder: No - Renal Hx Renal Disorder: No - Endocrine/Metabolic Hx Diabetes Mellitus Type 2: Yes - Hematological/Oncological Hx Blood Disorders: No - Integumentary Hx Dermatological Disorder: Yes (tatoos b/l arms) - Musculoskeletal/Rheumatological Hx Musculoskeletal Disorders: No Hx Falls: Yes (in thr past L shoulder injury) - Gastrointestinal Hx Gastrointestinal Disorders: No - Genitourinary/Gynecological Hx Genitourinary Disorders: No - Psychiatric Hx Psychophysiologic Disorder: No Hx Substance Use: No - Surgical History Hx Appendectomy: Yes Hx Coronary Stent: Yes Hx Orthopedic Surgery: Yes Other/Comment: left shoulder repair for torn muscle, torn tendon, rotator cuff sx from a fall - Anesthesia Hx Anesthesia: No - Suicidal Assessment Feels Threatened In Home Enviroment: No Family/Social History Family/Social History: Unknown Family HX Smoking Status: Never Smoked Hx Alcohol Use: No Hx Substance Use: No Hx Substance Use Treatment: No Allergies/Home Meds Allergies/Adverse Reactions: Allergies alprazolam [From Xanax] Allergy (Verified 02/07/18 00:12) RASH amoxicillin Allergy (Verified 02/07/18 00:12) RASH aspirin Allergy (Verified 02/07/18 00:12) RASH propranolol [From Inderal LA] Allergy (Verified 02/07/18 00:12) RASH shellfish derived Allergy (Verified 02/07/18 00:12) RASH Home Medications: Home Meds Medication Instructions Recorded Confirmed Metoprolol Succinate XL [Toprol XL] 25 mg PO DAILY 01/21/15 02/07/18 Diclofenac Sodium [Voltaren] 75 mg PO DAILY 10/03/17 02/07/18 Lisinopril [Zestril] 2.5 mg PO DAILY 10/03/17 02/07/18 Omeprazole 40 mg PO DAILY 10/03/17 02/07/18 Review of Systems - Review of Systems Constitutional: Normal Eyes: Normal ENT: Normal Respiratory: Normal Cardiovascular: Normal Gastrointestinal: Normal Genitourinary Male: Normal Musculoskeletal: Other (L elbow pain) Skin: Normal Neurological: Normal Endocrine: Normal Hemo/Lymphatic: Normal Psychiatric: Normal Physical Exam Vital Signs Temp Pulse Resp BP Pulse Ox 02/07/18 01:00 98.0 F 92 H 18 150/69 97 02/06/18 23:31 98 F 95 H 18 148/67 97 - Systems Exam Head: Present: Atraumatic, Normocephalic Pupils: Present: PERRL Extroacular Muscles: Present: EOMI Conjunctiva: Present: Normal Mouth: Present: Moist Mucous Membranes Neck: Present: Normal Range of Motion Respiratory/Chest: Present: Clear to Auscultation, Good Air Exchange. No: Respiratory Distress, Accessory Muscle Use Cardiovascular: Present: Regular Rate and Rhythm, Normal S1, S2. No: Murmurs Abdomen: No: Tenderness, Distention, Peritoneal Signs Back: Present: Normal Inspection Upper Extremity: Present: Normal ROM, NORMAL PULSES, Tenderness (tip of left elbow w/ bursae swelling. No crepitus or overlying erythema. mild edema. N/V intact distally. ), Neurovascularly Intact. No: Cyanosis, Edema, Erythema Lower Extremity: Present: Normal Inspection. No: Edema Neurological: Present: GCS=15, CN II-XII Intact, Speech Normal Skin: Present: Warm, Dry, Normal Color. No: Rashes Psychiatric: Present: Alert, Oriented x 3, Normal Insight, Normal Concentration Medical Decision Making ED Course and Treatment: 02/07/18 00:11 53 yr old male p/w L bursae swelling. No erythema or warmth in area. No crepitus. Likely bursitis. Will XR and seek rx. unlikely septic joint given no overlying erythema, pain w/ movement of joint. 02/07/18 01:00 Re-examined. no erythema. No warmth, non cellulitic on apperance. Xray unremarkable. PT notes he has motrin at home. Clear for d/c home. - RAD Interpretation Radiology Orders: 02/07/18 00:03 ELBOW LEFT 3 VIEWS ROUTINE [RAD] Stat - Medication Orders Current Medication Orders: Discontinued Medications Ibuprofen (Motrin Tab) 600 mg PO STAT STA Stop: 02/07/18 00:06 Last Admin: 02/07/18 00:13 Dose: 600 mg MAR Pain/Vitals Document 02/07/18 00:13 CARL (Rec: 02/07/18 00:15 [id number]) Pain Reassessment Is This A Pain ReAssessment? Yes Presence of Pain Presence of Pain Yes Location Left, Right or Bilateral Left Pain Location Body Site Elbow Description Intermittent Stabbing Disposition/Present on Arrival - Present on Arrival Any Indicators Present on Arrival: No History of DVT/PE: No History of Uncontrolled Diabetes: Yes Urinary Catheter: No History of Decub. Ulcer: No History Surgical Site Infection Following: None - Disposition Have Diagnosis and Disposition been Completed?: Yes Diagnosis: Olecranon bursitis Disposition: HOME/ ROUTINE Disposition Time: 01:01 Condition: GOOD Discharge Instructions (ExitCare): Bursitis, Olecranon Bursitis, Olecranon Bursitis (DC), Olecranon Bursitis Exercises Additional Instructions: GARY HANSON JR, thank you for letting us take care of you today. Your provider was Regino Asher and you were treated for BUMP ON LF ELBOW. The emergency medical care you received today was directed at your acute symptoms. If you were prescribed any medication, please fill it and take as directed. It may take several days for your symptoms to resolve. Return to the Emergency Department if your symptoms worsen, do not improve, or if you have any other problems. Please contact your doctor or call one of the physicians/clinics you have been referred to that are listed on the Patient Visit Information form that is included in your discharge packet. Bring any paperwork you were given at discharge with you along with any medications you are taking to your follow up visit. Our treatment cannot replace ongoing medical care by a primary care provider outside of the emergency department. Thank you for allowing the [facility] team to be part of your care today. If you had an X-Ray or CT scan: A Radiologist will review the ED reading if any change in treatment is needed we will contact you. If you had a blood, urine, or wound culture: It will take several days for the results, if any change in treatment is needed we will contact you. If you had an STI test: It will take 48 hours for the results. Please call after 1 week if you have not heard back. Referrals: Kiet Manzanares MD [Staff Provider] - Follow up with primary Forms: [employer] (Telugu)
[2018-02-07 01:11] VITALS: BP 150/69; PULSE 92; TEMP 98
--- NOTE | 2018-02-07 10:40 | RAD ---
Date of service: 02/07/2018 PROCEDURE: Radiographs of the left elbow. HISTORY: Left elbow pain COMPARISON: No prior. FINDINGS: BONES: Bone alignment and mineralization are normal. There is no acute displaced fracture or bone destruction. JOINTS: Normal. SOFT TISSUES: Normal. JOINT EFFUSION: None. OTHER FINDINGS: None IMPRESSION: No acute fracture or dislocation.
== END 2018-02-07 01:10 | disposition home or self-care (01) ==
LOC: ED 22:37
DX: M70.22 Olecranon bursitis, left elbow (principal); E11.9 Type 2 diabetes mellitus without complications; I10 Essential (primary) hypertension